=== PATIENT | male | born 1945 | race Caucasian/White ===

== ENCOUNTER 2023-02-15 17:56 | Inpatient (IN) | payer MEDICARE, OTHER ==
[~2023-02-15] VITALS: Ht 180.3 cm; Wt 94.8 kg
[2023-02-15 18:07] VITALS: PULSE 83; PULSE 89; RESP 24; O2SAT 90
[2023-02-15] MEDS ORDERED: INSULIN REGULAR, HUMAN 100 UNITS/ML IVP ONE ×3 (18:15→23:15)
[2023-02-15] MEDS ORDERED: 0.9% SODIUM CHLORIDE 10 ML SYRINGE IVP PRN (18:30)
[2023-02-15 18:31] LABS: BASOPHILS % (AUTO) 0.3 % (0.0-2.0); EOSINOPHILS % (AUTO) 0.4 % (1.0-6.0); HEMATOCRIT 43.2 % (41-53); HEMOGLOBIN 12.5 g/dL (13.5-17.5); LYMPHOCYTES % (AUTO) 17.8 % (22.0-44.0); MEAN CORPUSCULAR HGB CONC 28.9 G/dL (31.0-37.0); MEAN CORPUSCULAR VOLUME 114 fL (80-100); MONOCYTES # (AUTO) 0.4 K/uL (0.1-1.0); MONOCYTES % (AUTO) 1.7 % (2.0-9.0); NEUTROPHILS # (AUTO) 17.8 K/uL (1.8-7.7); NEUTROPHILS % (AUTO) 79.8 % (40.0-70.0); PLATELET COUNT (AUTO) 256 K/uL (150-450); RED BLOOD CELL COUNT(AUTO) 3.78 MIL/uL (4.50-5.90); RED CELL DISTRIBUTION WIDTH 15.9 % (11.5-14.5)
[2023-02-15] MEDS ORDERED: FentaNYL CIT 1000MCG/0.9% NACL 100 ML IV PRN ×3 (18:45→22:00)
[2023-02-15 18:50] LABS: D-DIMER 4.4 mg/L FEU (0.00-0.50); INR 1.1 (0.9-1.1); PROTHROMBIN TIME 11.6 SEC (9.4-11.6)
[2023-02-15 18:52] LABS: ALANINE AMINOTRANSFERASE 157 U/L (12-78); ALBUMIN 2.7 g/dL (3.4-5.0); ALKALINE PHOSPHATASE 129 U/L (46-116); ANION GAP 41 mmol/L (8-16); ASPARTATE AMINOTRANSFERASE 192 U/L (15-37); BILIRUBIN,TOTAL 0.8 mg/dL (0.1-1.0); CALCIUM, TOTAL 9.3 mg/dL (8.8-10.5); CHLORIDE 92 mmol/L (98-107); CREATININE 3.47 mg/dL (0.60-1.30); GLOMERULAR FILTR. RATE CALC 17 mL/min (>60); SODIUM SERUM 140 mmol/L (136-145); TOTAL PROTEIN, SERUM 5.3 g/dL (6.4-8.2)
[2023-02-15 18:54] LABS: B-TYPE NATRIURETIC PEPTIDE 198 pg/mL (0-100)
[2023-02-15 19:07] LABS: CARBON DIOXIDE 7 mmol/L (22-29); GLUCOSE,RANDOM 946 mg/dL (70-110); POTASSIUM 6.7 mmol/L (3.5-5.1)
[2023-02-15 19:23] LABS: APPEARANCE,URINE CLEAR (CLEAR); BILIRUBIN,URINE NEGATIVE (NEGATIVE); GLUCOSE, URINE (UA) >=1000 mg/dL (NEGATIVE); KETONES,URINE 40-60 mg/dL (NEGATIVE); LEUKOCYTE ESTERASE ,URINE NEGATIVE (NEGATIVE); NITRATE,URINE NEGATIVE (NEGATIVE); OCCULT BLOOD,URINE NEGATIVE (NEGATIVE); PROTEIN,URINE 30-70 mg/dL (NEGATIVE); SPECIFIC GRAVITIY, URINE 1.019 (1.003-1.030); UROBILINOGEN,URINE <=1.0 mg/dL (<=1.0)
[2023-02-15] MEDS ORDERED: POTASSIUM CHL 20 MEQ/0.45% NS 1,000 ML IV PRN ×2 (19:30→21:45)
[2023-02-15] MEDS ORDERED: SODIUM CHLORIDE 0.9% 2,600 ML IV ONE (19:30)
[2023-02-15] MEDS ORDERED: SODIUM CHLORIDE 0.9% 1,000 ML IV SCH ×2 (19:30→21:45)
[2023-02-15] MEDS ORDERED: SODIUM CHLORIDE 0.45% 1,000 ML IV PRN ×2 (19:30→21:45)
[2023-02-15] MEDS ORDERED: DEXTROSE 50%-WATER 25 GM/50 ML SYRINGE IVP PRN ×2 (19:30→21:45)
[2023-02-15] MEDS ORDERED: MIDAZOLAM HCL 100 MG in SODIUM CHLORIDE 0.9% 180 ML IV PRN (19:30)
[2023-02-15] MEDS ORDERED: POTASSIUM CHLORIDE 40 MEQ in SODIUM CHLORIDE 0.45% 1,000 ML IV PRN (19:30)
[2023-02-15] MEDS ORDERED: DEXTROSE 5%-0.45% SODIUM CHL 1,000 ML IV PRN ×2 (19:30→21:45)
[2023-02-15] MEDS ORDERED: INSULIN REGULAR, HUMAN 100 UNITS in SODIUM CHLORIDE 0.9% 99 ML IV PRN ×2 (19:30)
[2023-02-15] MEDS ORDERED: PIPERACILLIN/TAZO 3.375 GM/D5W 50 ML IV ONE (19:30)
[2023-02-15 19:31] LABS: BACTERIA,URINE Rare /HPF (None Seen); RBC,URINE 0-2 /HPF (0-2); SQUAMOUS EPITHELIAL CELL,UR Rare /LPF (None Seen)
[2023-02-15] MEDS ORDERED: SODIUM CHLORIDE 0.9% 100 ML ONE (19:35)
[2023-02-15 19:40] LABS: ABG CARBOXYHEMOGLOBIN 0.3 % (0.0-1.5); ABG METHEMOGLOBIN 0.3 % (0.0-1.5); ABG OXYGEN CONTENT 18.4 mL/dL (15.0-23.0); ABG OXYGEN SATURATION 99.2 % (95.0-98.0); ABG OXYHEMOGLOBIN 98.6 % (94.0-100.0); ABG PCO2 39 mmHg (35-45); ABG TOTAL HEMOGLOBIN 12.5 G/dL (12.0-18.0); PO2, ARTERIAL BG 389.9 mmHg (75.0-83.0); SOURCE, BLOOD GAS ARTERIAL; TEMPERATURE, FAHRENHEIT, BG 98.5 FAHREN (96.0-98.6)
[2023-02-15 19:41] LABS: ABG HCO3 6.2 mmol/L (22.0-26.0); ABG PH 6.851 (7.35-7.450); O2 DEVICE,BLOOD GAS VENTILATOR (ROOM AIR); PEEP,BG 5 cm H2O; SITE, BLOOD GAS LFT RADIAL; VT, ABG 500 ml
[2023-02-15 19:44] LABS: LACTIC ACID 16.6 mmol/L (0.4-2.0)
[2023-02-15] MEDS ORDERED: DOPamine 400MG/D5W[STANDARD] 250 ML IV PRN (20:15)
[2023-02-15] MEDS ORDERED: NOREPINEPHRINE 8 MG/0.9 % NACL 250 ML IV PRN ×2 (20:15→22:00)
[2023-02-15] MEDS ORDERED: CALCIUM CHLORIDE 100 MG/ML 10 ML SYRINGE IVP ONE (20:45)
[2023-02-15 20:56] LABS: HEMATOCRIT 43.6 % (41-53); HEMOGLOBIN 12.4 g/dL (13.5-17.5); MEAN CORPUSCULAR HEMOGLOBIN 33.1 pg (26.0-34.0); MEAN CORPUSCULAR HGB CONC 28.6 G/dL (31.0-37.0); MEAN CORPUSCULAR VOLUME 116 fL (80-100); PLATELET COUNT (AUTO) 268 K/uL (150-450); RED BLOOD CELL COUNT(AUTO) 3.76 MIL/uL (4.50-5.90)
[2023-02-15] MEDS: INSULIN REGULAR, HUMAN 100 UNITS/ML IVP PRN ×2 (21:10→22:24)
[2023-02-15 21:18] LABS: BAND NEUTROPHILS % (MANUAL) 17 % (0-5); LYMPHOCYTES % (MANUAL) 24 % (22-44); MONOCYTES % (MANUAL) 2 % (2-9); SEGMENTED NEUTROPHILS % 57 % (40-70)
[2023-02-15] MEDS ORDERED: MIDAZOLAM HCL 2 MG/2 ML VIAL IVP PRN (21:45)
[2023-02-15] MEDS ORDERED: PANTOPRAZOLE SODIUM 40 MG/VIAL IVP ONE (21:45)
[2023-02-15] MEDS ORDERED: ATOR10TA69 PO (21:53)
[2023-02-15] MEDS ORDERED: SPIR-37 PO (21:53)
[2023-02-15] MEDS ORDERED: MULT-1203 PO (21:53)
[2023-02-15] MEDS ORDERED: ISOS30TA68 PO (21:53)
[2023-02-15] MEDS ORDERED: DOCU-119 PO (21:53)
[2023-02-15] MEDS ORDERED: LOSA-381 PO (21:53)
[2023-02-15] MEDS ORDERED: CLON0.1T PO (21:53)
[2023-02-15] MEDS ORDERED: OMEP20 PO (21:53)
[2023-02-15] MEDS ORDERED: [UNRECOGNIZED DRUG - REMARK] BU (21:53)
[2023-02-15] MEDS ORDERED: *CLINICAL-CEFEPIME DOSING CLINICAL ONE (22:00)
[2023-02-15] MEDS ORDERED: PHENYLEPHRINE 200 MG/D5%-WATER 250 ML IV PRN (22:00)
[2023-02-15 22:09] LABS: CALCIUM, TOTAL 8.8 mg/dL (8.8-10.5); CREATININE 3.72 mg/dL (0.60-1.30); POTASSIUM 4.7 mmol/L (3.5-5.1)
[2023-02-15 22:11] LABS: ALBUMIN 2.6 g/dL (3.4-5.0); BILIRUBIN,TOTAL 0.9 mg/dL (0.1-1.0); TOTAL PROTEIN, SERUM 5.3 g/dL (6.4-8.2)
[2023-02-15] MEDS ORDERED: CEFEPIME HCL 1 GM in DEXTROSE 5%-WATER 50 ML IV SCH (22:15)
[2023-02-15] MEDS ORDERED: HEPARIN SODIUM,PORCINE 5,000 UNITS/ML VIAL IVP ONE (22:30)
[2023-02-15] MEDS ORDERED: HEPARIN SODIUM,PORCINE 5,000 UNITS/ML VIAL IVP PRN ×2 (22:30)
[2023-02-15] MEDS ORDERED: VANCOMYCIN HCL 1.5 GM in DEXTROSE 5%-WATER 250 ML IV ONE (22:30)
[2023-02-15] MEDS ORDERED: AMIODARONE HCL 150 MG in DEXTROSE 5%-WATER 97 ML IV ONE (22:30)
[2023-02-15] MEDS ORDERED: AMIODARONE HCL 360 MG in DEXTROSE 5%-WATER 242.8 ML IV ONE (22:30)
[2023-02-15] MEDS ORDERED: HEPARIN SODIUM 25000 UNITS/D5W 250 ML IV PRN (22:30)
[2023-02-15 22:41] LABS: GLUCOMETER DEV NAME(LOC) ER.6
[2023-02-15 22:41] LABS: GLUCOMETER DEV NAME(LOC) ER.6
[2023-02-15] MEDS ORDERED: SODIUM BICARBONATE [ADULT] 8.4% 50 MEQ/50 ML SYRINGE IVP ONE (22:45)
[2023-02-15] MEDS ORDERED: VANCOMYCIN HCL 1 GM in DEXTROSE 5%-WATER 250 ML IV PRN (22:45)
[2023-02-15 23:13] LABS: MAGNESIUM 2.7 mg/dL (1.80-2.40)
[2023-02-15 23:59] VITALS: PULSE 110; RESP 24; O2SAT 100
[2023-02-16] VITALS (20 sets, daily range): BP systolic 68–121; BP diastolic 40–71; PULSE 61–103; RESP 18–22; TEMP 89.8–98.1; O2SAT 96–100
[2023-02-16 00:31] LABS: INR 1.3 (0.9-1.1)
[2023-02-16 00:36] LABS: CALCIUM, TOTAL 7.8 mg/dL (8.8-10.5); CREATININE 3.84 mg/dL (0.60-1.30); POTASSIUM 3.5 mmol/L (3.5-5.1)
[2023-02-16] MEDS: INSULIN REGULAR, HUMAN 100 UNITS/ML IVP PRN ×10 (00:59→23:15)
[2023-02-16] MEDS ORDERED: DOPamine 400MG/D5W[STANDARD] 250 ML IV PRN (01:30)
[2023-02-16] MEDS: NOREPINEPHRINE 8 MG/0.9 % NACL 250 ML IV PRN ×3 (01:35→23:05)
[2023-02-16] MEDS ORDERED: SODIUM CHLORIDE 0.9% 250 ML IV ONE ×2 (01:43→06:14)
[2023-02-16] MEDS: POTASSIUM CHLORIDE 40 MEQ in SODIUM CHLORIDE 0.45% 1,000 ML IV PRN ×2 (02:22→19:43)
[2023-02-16] MEDS: ETHYL ALCOHOL 62% ANTISEPTIC NASAL SANITIZER 0.6 ML AMPUL NASAL SCH ×3 (02:27→20:59)
[2023-02-16] MEDS: INSULIN REGULAR, HUMAN 100 UNITS in SODIUM CHLORIDE 0.9% 99 ML IV PRN ×4 (02:32→20:48)
[2023-02-16] MEDS ORDERED: INSULIN REGULAR, HUMAN 100 UNITS/ML IVP ONE (03:30)
[2023-02-16] MEDS ORDERED: AMIODARONE HCL 540 MG in DEXTROSE 5%-WATER 239.2 ML IV ONE (04:30)
[2023-02-16 05:33] LABS: ABG BASE EXCESS -15.8 mmol/L (-2.0-3.0); ABG CARBOXYHEMOGLOBIN 0.4 % (0.0-1.5); ABG HCO3 13.1 mmol/L (22.0-26.0); ABG METHEMOGLOBIN 0.3 % (0.0-1.5); ABG OXYGEN CONTENT 17.2 mL/dL (15.0-23.0); ABG OXYGEN SATURATION 97.2 % (95.0-98.0); ABG OXYHEMOGLOBIN 96.5 % (94.0-100.0); ABG PCO2 34 mmHg (35-45); ABG PH 7.182 (7.35-7.450); ABG TOTAL HEMOGLOBIN 12.6 G/dL (12.0-18.0); SOURCE, BLOOD GAS ARTERIAL
[2023-02-16 05:34] LABS: O2 DEVICE,BLOOD GAS VENTILATOR (ROOM AIR); PEEP,BG 5 cm H2O; SITE, BLOOD GAS LFT RADIAL; VT, ABG 500 ml
[2023-02-16 05:41] LABS: BASOPHILS % (AUTO) 0.1 % (0.0-2.0); EOSINOPHILS % (AUTO) 2.4 % (1.0-6.0); HEMATOCRIT 36.7 % (41-53); HEMOGLOBIN 11.9 g/dL (13.5-17.5); LYMPHOCYTES # (AUTO) 0.7 K/uL (1.0-4.8); LYMPHOCYTES % (AUTO) 8.7 % (22.0-44.0); MEAN CORPUSCULAR HEMOGLOBIN 33.7 pg (26.0-34.0); MEAN CORPUSCULAR HGB CONC 32.3 G/dL (31.0-37.0); MEAN CORPUSCULAR VOLUME 104 fL (80-100); MONOCYTES # (AUTO) 0.1 K/uL (0.1-1.0); MONOCYTES % (AUTO) 0.9 % (2.0-9.0); NEUTROPHILS # (AUTO) 6.7 K/uL (1.8-7.7); PLATELET COUNT (AUTO) 186 K/uL (150-450); RED BLOOD CELL COUNT(AUTO) 3.53 MIL/uL (4.50-5.90); RED CELL DISTRIBUTION WIDTH 14.8 % (11.5-14.5)
[2023-02-16 05:48] LABS: NEUTROPHILS % (AUTO) 87.9 % (40.0-70.0)
[2023-02-16 05:50] LABS: ALBUMIN 2.1 g/dL (3.4-5.0); BILIRUBIN,TOTAL 0.9 mg/dL (0.1-1.0); CALCIUM, TOTAL 7.2 mg/dL (8.8-10.5); CREATININE 3.76 mg/dL (0.60-1.30); MAGNESIUM 2.1 mg/dL (1.80-2.40); PHOSPHORUS 3.8 mg/dL (2.5-4.9); TOTAL PROTEIN, SERUM 4.3 g/dL (6.4-8.2)
[2023-02-16 05:53] LABS: POTASSIUM 2.8 mmol/L (3.5-5.1)
[2023-02-16] MEDS: POTASSIUM CHL 10 MEQ/WATER 50 ML IV SCH ×4 (06:12→11:10)
[2023-02-16] MEDS ORDERED: SODIUM CHLORIDE 0.9% IV PRN ×5 (06:45→07:00)
[2023-02-16] MEDS ORDERED: CEFEPIME HCL 1 GM in SODIUM CHLORIDE 0.9% 50 ML IV SCH (06:45)
[2023-02-16] MEDS ORDERED: PHENYLEPHRINE HCL IV PRN (06:45)
[2023-02-16] MEDS ORDERED: HEPARIN SODIUM IV PRN ×4 (07:00)
[2023-02-16] MEDS ORDERED: VANCOMYCIN HCL 1 GM in SODIUM CHLORIDE 0.9% 250 ML IV PRN (07:03)
[2023-02-16] MEDS ORDERED: HEPARIN SODIUM,PORCINE 1,000 UNITS/ML VIAL ONE (07:36)
[2023-02-16] MEDS: HEPARIN SODIUM,PORCINE 1,000 UNITS/ML VIAL IVCATH PRN ×2 (07:39→07:41)
[2023-02-16] MEDS: PANTOPRAZOLE SODIUM 40 MG/VIAL IVP SCH ×2 (09:00→20:59)
[2023-02-16] MEDS: ASPIRIN 81 MG CHEWABLE TABLET NG SCH (09:01)
[2023-02-16 09:47] LABS: CREATININE 3.93 mg/dL (0.60-1.30)
[2023-02-16 09:51] LABS: POTASSIUM 2.9 mmol/L (3.5-5.1)
[2023-02-16] MEDS: PHENYLEPHRINE HCL 200 MG in SODIUM CHLORIDE 0.9% 230 ML IV PRN ×2 (10:31→22:06)
[2023-02-16] MEDS ORDERED: EPINEPHrine 1:10,000 [1 MG/10 ML] SYRINGE IVP ONE (12:00)
[2023-02-16] MEDS ORDERED: SODIUM BICARBONATE [ADULT] 8.4% 50 MEQ/50 ML SYRINGE IVP ONE (12:00)
[2023-02-16] MEDS ORDERED: CALCIUM CHLORIDE 100 MG/ML 10 ML SYRINGE IVP ONE (12:00)
[2023-02-16] MEDS ORDERED: HEPARIN SODIUM,PORCINE 1,000 UNITS/ML VIAL IVP ONE (12:00)
[2023-02-16] MEDS ORDERED: CALCIUM GLUCONATE 0.465 MEQ/ML 10 ML VIAL IVP ONE (12:00)
[2023-02-16] MEDS ORDERED: 0.9% SODIUM CHLORIDE 1,000 ML BAG IV ONE (12:00)
[2023-02-16] MEDS ORDERED: DOPamine HCL/D5W 400 MG/250 ML IV BAG IV ONE (12:00)
[2023-02-16] MEDS: DOXYCYCLINE HYCLATE 100 MG in SODIUM CHLORIDE 0.9% 100 ML IV SCH (12:15)
[2023-02-16] MEDS: VASOPRESSIN 40 UNITS in SODIUM CHLORIDE 0.9% 98 ML IV PRN (12:16)
[2023-02-16 12:27] LABS: ABG BASE EXCESS -7.9 mmol/L (-2.0-3.0); ABG CARBOXYHEMOGLOBIN 0.2 % (0.0-1.5); ABG HCO3 18.4 mmol/L (22.0-26.0); ABG METHEMOGLOBIN 0.3 % (0.0-1.5); ABG OXYGEN CONTENT 18.6 mL/dL (15.0-23.0); ABG OXYHEMOGLOBIN 95.5 % (94.0-100.0); ABG PCO2 38 mmHg (35-45); ABG PH 7.307 (7.35-7.450); ABG TOTAL HEMOGLOBIN 13.8 G/dL (12.0-18.0); PO2, ARTERIAL BG 67.9 mmHg (75.0-83.0); SOURCE, BLOOD GAS ARTERIAL
[2023-02-16 12:32] LABS: ABG A-A DIFF O2 614.2 mmHg (10-20.0); O2 DEVICE,BLOOD GAS VENTILATOR (ROOM AIR); PEEP,BG 5 cm H2O; SITE, BLOOD GAS LFT RADIAL; VT, ABG 500 ml
[2023-02-16 12:33] LABS: TEMPERATURE, FAHRENHEIT, BG 93.6 FAHREN (96.0-98.6)
[2023-02-16 17:05] LABS: CALCIUM, TOTAL 7.1 mg/dL (8.8-10.5); CREATININE 3.54 mg/dL (0.60-1.30); MAGNESIUM 1.9 mg/dL (1.80-2.40); PHOSPHORUS 4.2 mg/dL (2.5-4.9); POTASSIUM 3.8 mmol/L (3.5-5.1)
[2023-02-16] MEDS ORDERED: POTASSIUM CHLORIDE 20 MEQ in NXSTAGE RFP-402 K0/CA3 5,000 ML IRRIG PRN (22:15)
[2023-02-16] MEDS ORDERED: AMIODARONE HCL 750 MG in DEXTROSE 5%-WATER 485 ML IV SCH (22:30)
[2023-02-16 23:10] LABS: CALCIUM, TOTAL 6.6 mg/dL (8.8-10.5); CREATININE 3.77 mg/dL (0.60-1.30); POTASSIUM 4.3 mmol/L (3.5-5.1)
[2023-02-17] VITALS (7 sets, daily range): BP systolic 78–112; BP diastolic 43–55; PULSE 32–70; RESP 20–21; TEMP 91.2–93; O2SAT 91–100
[2023-02-17] MEDS: INSULIN REGULAR, HUMAN 100 UNITS/ML IVP PRN ×4 (00:08→03:00)
[2023-02-17] MEDS: DOXYCYCLINE HYCLATE 100 MG in SODIUM CHLORIDE 0.9% 100 ML IV SCH ×2 (00:11→12:19)
[2023-02-17 01:03] LABS: ABG BASE EXCESS -14.5 mmol/L (-2.0-3.0); ABG CARBOXYHEMOGLOBIN 0.6 % (0.0-1.5); ABG HCO3 13.7 mmol/L (22.0-26.0); ABG METHEMOGLOBIN 0.3 % (0.0-1.5); ABG OXYGEN CONTENT 17.9 mL/dL (15.0-23.0); ABG OXYGEN SATURATION 96.8 % (95.0-98.0); ABG OXYHEMOGLOBIN 95.9 % (94.0-100.0); ABG PCO2 38 mmHg (35-45); ABG TOTAL HEMOGLOBIN 13.2 G/dL (12.0-18.0); PO2, ARTERIAL BG 82.8 mmHg (75.0-83.0); SOURCE, BLOOD GAS ARTERIAL
[2023-02-17 01:04] LABS: ABG PH 7.179 (7.35-7.450); O2 DEVICE,BLOOD GAS VENTILATOR (ROOM AIR); PEEP,BG 5 cm H2O; SITE, BLOOD GAS LFT RADIAL; VT, ABG 500 ml
[2023-02-17 03:33] LABS: ALBUMIN 1.8 g/dL (3.4-5.0); CALCIUM, TOTAL 6.6 mg/dL (8.8-10.5); CREATININE 3.34 mg/dL (0.60-1.30); MAGNESIUM 1.7 mg/dL (1.80-2.40); PHOSPHORUS 4.5 mg/dL (2.5-4.9); POTASSIUM 4.5 mmol/L (3.5-5.1)
[2023-02-17 04:12] LABS: ACETONE,BLOOD TRACE (NEGATIVE)
[2023-02-17] MEDS: INSULIN REGULAR, HUMAN 100 UNITS in SODIUM CHLORIDE 0.9% 99 ML IV PRN ×4 (04:57→11:32)
[2023-02-17] MEDS: NOREPINEPHRINE 8 MG/0.9 % NACL 250 ML IV PRN ×2 (05:34→12:17)
[2023-02-17] MEDS ORDERED: MIDAZOLAM HCL 100 MG in SODIUM CHLORIDE 0.9% 180 ML IV PRN (06:00)
[2023-02-17] MEDS: VASOPRESSIN 40 UNITS in SODIUM CHLORIDE 0.9% 98 ML IV PRN (06:19)
[2023-02-17] MEDS ORDERED: EPINEPHrine 1:10,000 [1 MG/10 ML] SYRINGE ONE (08:23)
[2023-02-17] MEDS: PHENYLEPHRINE HCL 200 MG in SODIUM CHLORIDE 0.9% 230 ML IV PRN (08:47)
[2023-02-17] MEDS: PANTOPRAZOLE SODIUM 40 MG/VIAL IVP SCH (09:00)
[2023-02-17] MEDS: ASPIRIN 81 MG CHEWABLE TABLET NG SCH (09:00)
[2023-02-17] MEDS: ETHYL ALCOHOL 62% ANTISEPTIC NASAL SANITIZER 0.6 ML AMPUL NASAL SCH (09:00)
[2023-02-17 09:29] LABS: ALBUMIN 1.6 g/dL (3.4-5.0); BILIRUBIN,TOTAL 1.2 mg/dL (0.1-1.0); CALCIUM, TOTAL 6.4 mg/dL (8.8-10.5); CREATININE 2.82 mg/dL (0.60-1.30); MAGNESIUM 1.6 mg/dL (1.80-2.40); TOTAL PROTEIN, SERUM 3.9 g/dL (6.4-8.2)
[2023-02-17] MEDS ORDERED: [UNRECOGNIZED DRUG - OTHER] IV PRN (09:45)
[2023-02-17] MEDS ORDERED: DOPAMINE IV PRN (09:45)
[2023-02-17] MEDS ORDERED: ATROPINE SULFATE 0.1 MG/ML 10 ML SYRINGE IVP ONE (09:45)
[2023-02-17] MEDS ORDERED: VANCOMYCIN 1GM/WATER(PEG/NADA) 200 ML IV ONE (10:00)
[2023-02-17 16:52] LABS: SITE, BLOOD GAS LFT BRACHIAL; SOURCE, BLOOD GAS ARTERIAL
[2023-02-17 16:54] LABS: ABG BASE EXCESS -17.5 mmol/L (-2.0-3.0); ABG HCO3 11.4 mmol/L (22.0-26.0); ABG PCO2 44 mmHg (35-45); ABG PH 7.075 (7.35-7.450); ABG TOTAL HEMOGLOBIN 12.6 G/dL (12.0-18.0); PO2, ARTERIAL BG 50.1 mmHg (75.0-83.0)
[2023-02-17 16:55] LABS: ABG A-A DIFF O2 625.3 mmHg (10-20.0); ABG CARBOXYHEMOGLOBIN 0.5 % (0.0-1.5); ABG METHEMOGLOBIN 0.3 % (0.0-1.5); ABG OXYGEN CONTENT 15.2 mL/dL (15.0-23.0); ABG OXYGEN SATURATION 86.3 % (95.0-98.0); ABG OXYHEMOGLOBIN 85.6 % (94.0-100.0); O2 DEVICE,BLOOD GAS VENTILATOR (ROOM AIR)
[2023-02-17 16:56] LABS: PEEP,BG 5 cm H2O; VT, ABG 500 ml
[2023-02-17 16:57] LABS: SPONTANEOUS VT, BG 480 ml
== END 2023-02-17 15:12 | DRG 871 ==
LOC: EMS 17:57 → ICU 21:00
PROVIDERS: ADMIT Internal Medicine; ATTEND Internal Medicine
PROC: 0BH17EZ Insertion of Endotracheal Airway into Trachea, Via Natural or Artificial Opening (ICD-10-PCS; principal; 2023-02-15)
PROC: 5A1945Z Respiratory Ventilation, 24-96 Consecutive Hours (ICD-10-PCS; 2023-02-15)
PROC: 02HV33Z Insertion of Infusion Device into Superior Vena Cava, Percutaneous Approach (ICD-10-PCS; 2023-02-15)
PROC: B548ZZA Ultrasonography of Superior Vena Cava, Guidance (ICD-10-PCS; 2023-02-15)
PROC: 0DH67UZ Insertion of Feeding Device into Stomach, Via Natural or Artificial Opening (ICD-10-PCS; 2023-02-15)
PROC: 5A12012 Performance of Cardiac Output, Single, Manual (ICD-10-PCS; 2023-02-16)
PROC: 5A1D70Z Performance of Urinary Filtration, Intermittent, Less than 6 Hours Per Day (ICD-10-PCS; 2023-02-16)
PROC: 5A1D90Z Performance of Urinary Filtration, Continuous, Greater than 18 hours Per Day (ICD-10-PCS; 2023-02-16)
PROC: 06HY33Z Insertion of Infusion Device into Lower Vein, Percutaneous Approach (ICD-10-PCS; 2023-02-16)
PROC: 5A1D90Z Performance of Urinary Filtration, Continuous, Greater than 18 hours Per Day (ICD-10-PCS; 2023-02-17)
DX: A41.9 Sepsis, unspecified organism (principal); E10.10 Type 1 diabetes mellitus with ketoacidosis without coma; G93.41 Metabolic encephalopathy; I21.4 Non-ST elevation (NSTEMI) myocardial infarction; J96.01 Acute respiratory failure with hypoxia; N17.0 Acute kidney failure with tubular necrosis; J69.0 Pneumonitis due to inhalation of food and vomit; R65.21 Severe sepsis with septic shock; I47.20 Ventricular tachycardia, unspecified; N18.4 Chronic kidney disease, stage 4 (severe); R57.0 Cardiogenic shock; E10.22 Type 1 diabetes mellitus with diabetic chronic kidney disease; E87.5 Hyperkalemia; Z66 Do not resuscitate; I12.9 Hypertensive chronic kidney disease with stage 1 through stage 4 chronic kidney disease, or unspecified chronic kidney disease; I25.10 Atherosclerotic heart disease of native coronary artery without angina pectoris; I95.9 Hypotension, unspecified; I46.9 Cardiac arrest, cause unspecified; D64.9 Anemia, unspecified; E78.5 Hyperlipidemia, unspecified; E86.0 Dehydration; E87.6 Hypokalemia; Z79.4 Long term (current) use of insulin; Z79.899 Other long term (current) drug therapy
CPT/HCPCS: 36600; 71045; 76770; 80048; 80053; 80202; 81001; 82009; 82805; 82947; 82962; 83605; 83735; 83880; 83930; 84100; 84145; 84484; 85025; 85379; 85610; 85730; 87040; 87070; 87081; 87340; 90935; 90947; 93005; 93306; 94002; 94003; 99291; C9113; G0378; J0171; J0282; J0610; J0692; J1265; J1644; J1815; J2250; J2370; J2543; J3370; J3480; J3490; J7030; J7050; J7060; Q9967; 36415-L1; 36415-TC